=== PATIENT | male | born 1975 | race Two or more races ===

== ENCOUNTER 2016-10-02 10:39 | Emergency (ER) | payer MEDICAID ==
[~2016-10-02] VITALS: Ht 182.9 cm; Wt 81.3 kg
[2016-10-02 13:39] VITALS: BP 117/89
[2016-10-02] MEDS ORDERED: clonazePAM 0.5 MG TAB PO ONE (14:15)
== END 2016-10-02 15:32 | disposition home or self-care (01) ==
LOC: ER 10:39
DX: F41.9 Anxiety disorder, unspecified (principal); Z76.0 Encounter for issue of repeat prescription